=== PATIENT | male | born 1995 | race Caucasian/White ===

== ENCOUNTER 2022-04-01 04:30 | Emergency (ER) | payer OTHER ==
[~2022-04-01] VITALS: Ht 177.8 cm; Wt 81.6 kg
[2022-04-01 04:34] VITALS: BP 144/94
--- NOTE | 2022-04-01 04:37 | NUR ---
Dr. Becker examining patient.
--- NOTE | 2022-04-01 04:38 | NUR ---
PT WANDA BLS. TAKEN TO BED 8
[2022-04-01] MEDS ORDERED: IBUPROFEN 800 MG TAB PO ONE (04:40)
--- NOTE | 2022-04-01 04:44 | NUR ---
RAD AT BEDSIDE
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
[2022-04-01] MEDS ORDERED: IBUP-1878 PO (05:21)
[2022-04-01 05:30] VITALS: BP 136/80
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
--- NOTE | 2022-04-01 05:35 | NUR ---
LEFT KNEE VERÓNICA WRAP APPLIED PER ERMD INSTRUCTION, PT TOLERATED THE PROCEDURE WELL +CMS BEFORE AND AFTER PROCEDURE
--- NOTE | 2022-04-01 05:35 | NUR ---
Chart checked and completed.
== END 2022-04-01 05:30 | disposition home or self-care (01) ==
LOC: MED 04:30
DX: S59.912A Unspecified injury of left forearm, initial encounter (principal); S59.911A Unspecified injury of right forearm, initial encounter; M25.562 Pain in left knee; Z79.899 Other long term (current) drug therapy; V89.2XXA Person injured in unspecified motor-vehicle accident, traffic, initial encounter; Y93.89 Activity, other specified; Y92.89 Other specified places as the place of occurrence of the external cause; Y99.8 Other external cause status
CPT/HCPCS: 73090; 73562; 99284; Q0092